=== PATIENT | female | born 1980 | race American Indian/Alaskan Native ===

== ENCOUNTER 2016-12-23 03:16 | Outpatient (CLI) | payer MEDICAID ==
[2016-12-23 03:36] VITALS: BP 120/56
--- NOTE | 2016-12-23 08:18 | Ultrasound Report ---
BIOPHYSICAL PROFILE: 2 - breathing movements 2 - movements 2 - posture and tone 2 - Qualitative amniotic fluid volume 8 - TOTAL SCORE OF POSSIBLE 8 Heart Rate (bpm) 139 History: SROM,, well being Gestation: Single Amniotic Fluid: ELISE = 12.2 cm Heart Rate: 146 BPM
== END 2016-12-23 05:32 | disposition home or self-care (01) ==
LOC: TRG 03:16
PROVIDERS: ATTEND Obstetrics & Gynecology
DX: O47.1 False labor at or after 37 completed weeks of gestation (principal); Z3A.38 38 weeks gestation of pregnancy
CPT/HCPCS: 59025; 76815; 76819

== ENCOUNTER 2016-12-28 11:25 | Inpatient (IN) | payer MEDICAID ==
[2016-12-28] MEDS ORDERED: LACTATED RINGERS 1,000 ML ONE (12:25)
[2016-12-28] MEDS ORDERED: POLYCILLIN/NS 2 GM/100 ML 2 GM/100 ML BAG IV ONE ×2 (12:25→17:14)
[2016-12-28] MEDS ORDERED: BRETHINE IVP PRN (12:32)
[2016-12-28] MEDS ORDERED: BRETHINE SUB-Q PRN (12:32)
[2016-12-28] MEDS ORDERED: ePHEDrine SULFATE IV PRN ×2 (12:32→15:54)
[2016-12-28] MEDS ORDERED: SUBLIMAZE IV PRN (12:32)
[2016-12-28] MEDS ORDERED: MINERAL OIL PO PRN (12:32)
[2016-12-28] MEDS ORDERED: STADOL IV PRN (12:32)
[2016-12-28] MEDS ORDERED: PITOCin/NS 20 UNIT/1000ML DRIP 20 UNITS/1,000 ML BAG IV SCH (13:00)
[2016-12-28 13:10] LABS: Hematocrit 26.2 % (30.3-42.9); Hemoglobin 7.8 gm/dl (10.1-14.3); Mean Corpuscular HGB Conc 30 % (30-34); Red Blood Count 4.05 M/mm3 (3.65-5.03); White Blood Count 8.6 K/mm3 (4.5-11.0)
[2016-12-28 13:14] LABS: Mean Corpuscular Hemoglobin 19 pg (28-32); Mean Corpuscular Volume 65 fl (79-97); Red Cell Distribution Width 20.7 % (13.2-15.2)
[2016-12-28] MEDS: LACTATED RINGERS 1,000 ML IV SCH ×2 (13:24→14:38)
[2016-12-28] MEDS: PITOCin/NS 30 UNIT/500ML 30 UNITS/500 ML BAG IV SCH ×4 (14:01→17:03)
[2016-12-28 14:11] LABS: Platelet Count 114 K/mm3 (140-440)
--- NOTE | 2016-12-28 14:28 | History and Physical Report ---
History of Present Illness Date of examination: 12/28/16 Date of admission: 12/28/16 12:15 Chief complaint: Labor Pains History of present illness: Late entry to care at 27 2/7 Weeks, GDM A1, non-compliant with APA consult, never went. 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 History: abnormal PAP smear (HPV), herpes Family/Genetic History: none Social history: no significant social history - Obstetrical History Expected Date of Delivery: 01/03/17 Actual Gestation: 39 Week(s) 1 Day(s) : 3 Para: 2 Hx # Term Pregnancies: 2 Number of Living Children: 2 #1 Infant Gender: Female year: 2,009 Birthweight: 3.544 kg Method of Delivery: Vaginal #2 Infant Gender: Female year: 2,[birth year] Birthweight: 3.203 kg Method of Delivery: Vaginal Medications and Allergies Allergies Allergy/AdvReac Type Severity Reaction Status Date / Time No Known Allergies Allergy Verified 08/26/13 08:48 Home Medications Medication Instructions Recorded Confirmed Last Taken Type Pnv95/Ferrous Fumarate/FA 1 tab PO DAILY 08/29/13 04/09/14 08/28/13 History [ Multivitamins Tablet] Active Meds: Active Medications Butorphanol Tartrate (Stadol) 2 mg IV Q2H PRN PRN Reason: Pain , Severe (7-10) Fentanyl (Sublimaze) 100 mcg IV Q2H PRN PRN Reason: Labor Pain Lactated Ringer's (Lactated Ringers) 1,000 mls @ 125 mls/hr IV DIRECT JUNITO Last Admin: 12/28/16 13:24 Dose: 125 mls/hr Oxytocin/Sodium Chloride (Pitocin/Ns 20 Unit/1000ml Drip) 20 units in 1,000 mls @ 125 mls/hr IV DIRECT JUNITO Oxytocin/Sodium Chloride (Pitocin/Ns 30 Unit/500ml) 30 units in 500 mls @ 2 mls /hr IV TITR JUNITO PRN Reason: Protocol Last Admin: 12/28/16 14:01 Dose: 4 ml/hr, 4 mls/hr Mineral Oil (Mineral Oil) 30 ml PO QHS PRN PRN Reason: Constipation Review of Systems All systems: negative - Vital Signs Vital signs: Vital Signs Temp Pulse Resp BP Pulse Ox 98.1 F 107 H 18 122/69 99 12/28/16 11:44 12/28/16 11:44 12/28/16 11:44 12/28/16 11:44 12/28/16 11:44 Temp Pulse Resp BP Pulse Ox 98.0 F 101 H 16 123/63 95 12/28/16 13:21 12/28/16 14:26 12/28/16 13:21 12/28/16 13:25 12/28/16 14:26 - Physical Exam Breasts: Positive: normal Cardiovascular: Regular rate Lungs: Positive: Clear to auscultation Abdomen: Positive: normal appearance, soft, normal bowel sounds Genitourinary (Female): Positive: normal external genitalia, normal perenium Vagina: Positive: normal moisture Uterus: Positive: enlarged Anus/Rectum: Positive: normal perianal skin Extremities: Positive: normal - Obstetrical FHR: category 1 Uterine Contraction Monitor Mode: External Cervical Dilatation: 5 (Large amount of clear fluid upon AROM at 1416) Cervical Effacement Percentage: 70 station: -2 Uterine Contraction Pattern: Irregular Uterine Tone Measurement Phase: Resting Uterine Contraction Intensity: Moderate Results Result Diagrams: 12/28/16 12:40 Abnormal lab results 12/28/16 Range/Units 12:40 Hgb 7.8 L (10.1-14.3) gm/dl Hct 26.2 L (30.3-42.9) % MCV 65 L (79-97) fl MCH 19 L (28-32) pg RDW 20.7 H (13.2-15.2) % Plt Count 114 L (140-440) K/mm3 All other labs normal. Assessment and Plan A: IUP @ 39 1/7 Week Category I Tracing Active Labor GDM A1 GBS Positive Severe Anemia Non-Compliant with Care P: Admit to L&D per Routine Orders GBS prophylaxis Pitocin Augmentation AROM Accuchecks as ordered
[2016-12-28] MEDS ORDERED: fentaNYL-BUPIV 2 MCG/ML-0.125% 200 MCG/100 ML BAG EPIDURAL ONE (14:49)
[2016-12-28] MEDS ORDERED: CYTOTEC ONE (15:12)
[2016-12-28] MEDS ORDERED: XYLOCAINE 2% INFILTRATI ONE (15:28)
[2016-12-28] MEDS ORDERED: XYLOCAINE MPF 2% ONE ×2 (15:29→16:12)
--- NOTE | 2016-12-28 15:52 | Anesthesia Consultation ---
Anesthesia Consult and Med Hx Date of service: 12/28/16 - Airway Anesthetic Teeth Evaluation: Good ROM Head & Neck: Adequate Mental/Hyoid Distance: Adequate Mallampati Class: Class II Intubation Access Assessment: Probably Good - Pulmonary Exam CTA: Yes - Cardiac Exam Cardiac Exam: RRR - Pre-Operative Health Status ASA Pre-Surgery Classification: ASA2 Proposed Anesthetic Plan: Epidural (CSE for labor), Spinal - Pulmonary Hx Asthma: No COPD: No Hx Pneumonia: No - Cardiovascular System Hx Hypertension: No - Central Nervous System Hx Seizures: No Hx Psychiatric Problems: No - Endocrine Hx Renal Disease: No Hx End Stage Renal Disease: No Hx Hypothyroidism: No Hx Hyperthyroidism: No - Hematic Hx Anemia: No Hx Sickle Cell Disease: No - Other Systems Hx Alcohol Use: No
[2016-12-28] MEDS ORDERED: NARCAN 2 MG/2 ML IV PRN (15:54)
[2016-12-28] MEDS ORDERED: fentaNYL-BUPIV 2 MCG/ML-0.125% 200 MCG/100 ML BAG EPIDURAL SCH (16:00)
[2016-12-28] MEDS ORDERED: POLYCILLIN/NS 1 GM/50 ML 1 GM/50 ML BAG IV ONE (17:11)
[2016-12-28] MEDS ORDERED: TUCKS PAD TP PRN (18:06)
[2016-12-28] MEDS ORDERED: PHENERGAN PO PRN (18:06)
[2016-12-28] MEDS ORDERED: DULCOLAX PR PRN (18:06)
[2016-12-28] MEDS ORDERED: MILK OF MAGNESIA PO PRN (18:06)
[2016-12-28] MEDS ORDERED: BENADRYL PO PRN (18:06)
[2016-12-28] MEDS ORDERED: PHENERGAN PR PRN (18:06)
[2016-12-28] MEDS ORDERED: LANSINOH TP PRN (18:06)
--- NOTE | 2016-12-28 18:14 | Procedure Note ---
OB Delivery Note - Delivery Date of Delivery: 12/28/16 (1752) Surgeon: NIALL SWANN Estimated blood loss: 200cc - Vaginal Delivery presentation: vertex Delivery position: OA Intrapartum events: none Delivery induction: none Delivery augmentation: rupture of membranes, pitocin Delivery monitor: external FHT, external uterine Route of delivery: Delivery placenta: spontaneous Delivery cord: 3 umbilical vessels Episiotomy: none Delivery laceration: none Anesthesia: epidural Delivery comments: of a live 8'3 male infant over a intact perineum under epidural anesthesia with Apgars of 8 and 9 at 1752 on 12/29/2016. directly to maternal abd/ chest, skin to skin contact. Spontaneous delivery of placenta complete and intact with [place] side presenting at 1756. Fundus is firm and midline located 4 below the U. Lochia is scant. 1000mcg of Cytotec placed rectally due to severe anemia. Delayed cord clamping and cutting; Cord cut by Father of the Baby. Cord blood collected; Placenta discarded. GBS prophylaxis X2. - Infant A at 1 minute: 8 at 5 minutes: 9 Infant Gender: Male (8'3)
[2016-12-28] MEDS ORDERED: INFED IM ONE (18:18)
[2016-12-28] MEDS ORDERED: SODIUM CHLORIDE FLUSH SYRINGE 10 ML IV NR (19:00)
[2016-12-28] MEDS: FEOSOL PO SCH (20:30)
[2016-12-28] MEDS: MOTRIN PO SCH (22:13)
[2016-12-28] MEDS: NORCO 5/325 PO PRN (22:17)
[2016-12-29] MEDS ORDERED: PITOCin/NS 20 UNIT/1000ML DRIP 20,000 MILLIUNITS/1,000 ML BAG IV ONE (01:35)
[2016-12-29] MEDS: NORCO 5/325 PO PRN (04:16)
[2016-12-29] MEDS: MOTRIN PO SCH ×4 (04:16→18:20)
[2016-12-29 06:26] LABS: Hematocrit 24.7 % (30.3-42.9); Hemoglobin 7.5 gm/dl (10.1-14.3)
[2016-12-29] MEDS: FEOSOL PO SCH ×3 (08:27→20:21)
[2016-12-29] MEDS: PRENATAL VITAMIN PO SCH (09:50)
--- NOTE | 2016-12-29 10:19 | Progress Note ---
Assessment and Plan A: PP Day#1 Severe Anemia P: Follow Routine Orders Consult Dr. Pacheco RE: Symptomatic Anemia; Blood Transfusion Subjective - Subjective Date of service: 12/29/16 Interval history: Late entry to care at 27 2/7 Weeks, GDM A1, non-compliant with APA consult, never went. Also non-compliant with appointments Patient reports: appetite normal, voiding normally, pain well controlled, flatus , ambulating normally, other (States she feels tired) [place]: in NICU Objective - Vital Signs Latest vital signs: Vital Signs Temp Pulse Resp BP BP Pulse Ox 12/29/16 04:25 98.6 F 61 20 135/56 98 12/29/16 00:56 99.6 F 143/55 12/29/16 00:54 99.6 F 62 20 99/56 99 12/28/16 19:50 67 98 12/28/16 19:45 71 99 12/28/16 19:43 61 146/70 12/28/16 19:40 60 98 12/28/16 19:35 64 99 12/28/16 19:30 66 99 12/28/16 19:28 64 151/70 12/28/16 19:25 67 99 12/28/16 19:23 98.0 F 70 18 151/70 100 12/28/16 19:13 68 138/53 12/28/16 18:59 66 149/67 12/28/16 18:44 75 119/55 12/28/16 17:47 87 100 12/28/16 17:42 100 H 100 12/28/16 17:37 87 100 12/28/16 17:32 61 87 12/28/16 17:27 87 100 12/28/16 17:22 72 100 12/28/16 17:17 81 100 12/28/16 17:12 72 100 12/28/16 17:07 69 100 12/28/16 17:02 68 100 12/28/16 16:57 76 100 12/28/16 16:52 69 100 12/28/16 16:47 72 100 12/28/16 16:42 71 100 12/28/16 16:37 74 100 12/28/16 16:32 67 98 12/28/16 16:27 79 98 12/28/16 16:22 67 99 12/28/16 16:17 70 99 12/28/16 16:12 77 100 12/28/16 16:07 75 100 12/28/16 16:02 78 100 12/28/16 15:57 75 100 12/28/16 15:52 78 99 12/28/16 15:51 74 127/64 12/28/16 15:47 78 99 12/28/16 15:42 74 100 12/28/16 15:36 86 117/57 100 12/28/16 15:26 80 100 12/28/16 15:21 86 100 12/28/16 15:11 78 100 12/28/16 15:06 75 100 12/28/16 15:01 75 100 12/28/16 14:56 77 100 12/28/16 14:51 82 99 12/28/16 14:46 72 100 12/28/16 14:41 73 99 12/28/16 14:36 75 100 12/28/16 14:31 73 99 12/28/16 14:26 101 H 95 12/28/16 14:25 60 50 L 12/28/16 14:21 96 H 100 12/28/16 14:16 79 100 12/28/16 14:11 76 100 12/28/16 14:06 82 100 12/28/16 14:05 87 93 12/28/16 13:30 94 H 100 12/28/16 13:28 101 H 82 L 12/28/16 13:25 80 123/63 98 12/28/16 13:21 98.0 F 85 16 123/63 98 12/28/16 13:20 81 98 12/28/16 13:15 90 98 12/28/16 13:10 94 H 98 12/28/16 13:05 94 H 91 12/28/16 12:53 89 99 12/28/16 12:48 101 H 100 12/28/16 12:17 93 H 99 12/28/16 12:12 97 H 97 12/28/16 12:06 93 H 98 12/28/16 12:01 102 H 93 12/28/16 12:00 112 H 82 L 12/28/16 11:56 123 H 82 L 12/28/16 11:55 89 82 L 12/28/16 11:49 91 H 122/69 96 12/28/16 11:44 98.1 F 94 H 18 122/69 97 Intake and Output 12/28/16 12/29/16 12/29/16 22:59 06:59 14:59 Intake Total 24.2 240 Output Total 550 225 Balance 24.2 -310 -225 Intake: IV 24.2 PITOCin/NS 30 UNIT/500ML 24.2 30 units In 500 ml @ 2 mls/hr IV TITR JUNITO Rx#: [id number] Oral 240 Output: Urine 550 225 Void 550 225 Other: Total, Intake Amount 240 Total, Output Amount 150 225 Estimated Blood Loss 200 - Exam Breasts: Present: normal Cardiovascular: Present: Regular rate Lungs: Present: Clear to auscultation, Normal air movement Abdomen: Present: normal appearance, soft, normal bowel sounds Uterus: Present: normal, firm, fundal height below umbilicus - Labs Labs: Abnormal lab results 12/28/16 12/28/16 12/29/16 Range/Units 12:40 21:42 05:49 Hgb 7.8 L 7.5 L (10.1-14.3) gm/dl Hct 26.2 L 24.7 L (30.3-42.9) % MCV 65 L (79-97) fl MCH 19 L (28-32) pg RDW 20.7 H (13.2-15.2) % Plt Count 114 L (140-440) K/mm3 POC Glucose 133 H (70-105)
--- NOTE | 2016-12-29 13:41 | Progress Note ---
Subjective Date of service: 12/29/16 Interval history: 1st day after normal vaginal delivery Patient is in the bed, comfortable. Pain is well control with pain meds. Ambulated well. No residual neurological deficit. No anesthesia complications Objective - Constitutional Vitals: Vital Signs - 12hr 12/29/16 12/29/16 04:25 08:43 Temperature 98.6 F 97.5 F L Pulse Rate 61 64 Respiratory 20 18 Rate Blood Pressure 135/56 123/70 [Left] O2 Sat by Pulse 98 97 Oximetry - Labs CBC & Chem 7: 12/29/16 05:49 Labs: Abnormal lab results 12/28/16 12/28/16 12/29/16 Range/Units 12:40 21:42 05:49 Hgb 7.5 L (10.1-14.3) gm/dl Hct 24.7 L (30.3-42.9) % Plt Count 114 L (140-440) K/mm3 POC Glucose 133 H (70-105)
[2016-12-30] MEDS: MOTRIN PO SCH ×3 (00:29→12:08)
--- NOTE | 2016-12-30 01:37 | Progress Note ---
Assessment and Plan A: PP Day#2 Asymptomatic Anemia GDM A1 P: Follow Routine Postpatum Orders Continue PO FeSO4 325mg TID Continue GDM Diet Desires Sterilization RTO in 2 Weeks Subjective - Subjective Date of service: 12/30/16 Interval history: Late entry to care at 27 2/7 Weeks, GDM A1, non-compliant with APA consult, never went. Also non-compliant with appointments Patient reports: appetite normal, voiding normally, pain well controlled, flatus , bowel movement, ambulating normally [place]: in NICU Objective - Vital Signs Latest vital signs: Vital Signs Temp Pulse Resp BP Pulse Ox 12/29/16 17:09 98.1 F 58 L 18 117/60 98 12/29/16 12:17 80 123/59 12/29/16 12:13 61 123/54 12/29/16 12:08 98.3 F 66 18 115/47 94 12/29/16 08:43 97.5 F L 64 18 123/70 97 12/29/16 04:25 98.6 F 61 20 135/56 98 Intake and Output 12/29/16 12/29/16 12/30/16 14:59 22:59 06:59 Intake Total 720 Output Total 225 Balance 495 Intake: Oral 720 Output: Urine 225 Void 225 Other: Total, Intake Amount 240 Total, Output Amount 225 # Voids Void 1 - Exam Breasts: Present: normal Cardiovascular: Present: Regular rate Lungs: Present: Clear to auscultation, Normal air movement Abdomen: Present: normal appearance, soft, normal bowel sounds Uterus: Present: normal, firm, fundal height below umbilicus Extremities: Present: normal - Labs Labs: Abnormal lab results 12/29/16 Range/Units 05:49 Hgb 7.5 L (10.1-14.3) gm/dl Hct 24.7 L (30.3-42.9) %
--- NOTE | 2016-12-30 01:39 | Discharge Summary ---
Providers - Providers Date of Admission: 12/28/16 12:15 Date of discharge: 12/30/16 Attending physician: ROLY SCHAEFFER MD Primary care physician: ROLY SCHAEFFER MD Hospitalization Reason for admission: active labor Delivery: Episiotomy: none Laceration: none Other procedures: none complications: none Discharge diagnosis: IUP at term delivered [place] baby: male Condition at discharge: Good Disposition: DC-01 TO HOME OR SELFCARE Plan - Provider Discharge Summary Activity: routine, no sex for 6 weeks, no heavy lifting 4 weeks, no strenuous exercise Diet: routine Instructions: routine Additional instructions: [] Smoking cessation referral if applicable(refer to patient education folder for contact #) [] Refer to [facility]'s [facility] Booklet Call your doctor immediately for: * Fever > 100.5 * Heavy vaginal bleeding ( >1 pad per hour) * Severe persistent headache * Shortness of breath * Reddened, hot, painful area to leg or breast * Drainage or odor from incision. * Keep incision clean and dry at all times and follow doctor's instructions regarding bathing/showering - Follow up plan Follow up: ROLY SCHAEFFER MD [Primary Care Provider] - 14 Days
[2016-12-30] MEDS: FEOSOL PO SCH (12:09)
[2016-12-30] MEDS: PRENATAL VITAMIN PO SCH (12:09)
[2016-12-30 17:34] VITALS: BP 151/53
== END 2016-12-30 18:20 | disposition home or self-care (01) | DRG 775 ==
LOC: TRG 11:25 → LD 12:15 → OB 20:15
PROVIDERS: ADMIT Obstetrics & Gynecology; ATTEND Obstetrics & Gynecology
PROC: 10E0XZZ Delivery of Products of Conception, External Approach (ICD-10-PCS; principal; 2016-12-28)
PROC: 3E0R3BZ Introduction of Anesthetic Agent into Spinal Canal, Percutaneous Approach (ICD-10-PCS; 2016-12-28)
PROC: 00HU33Z Insertion of Infusion Device into Spinal Canal, Percutaneous Approach (ICD-10-PCS; 2016-12-28)
PROC: 10907ZC Drainage of Amniotic Fluid, Therapeutic from Products of Conception, Via Natural or Artificial Opening (ICD-10-PCS; 2016-12-28)
DX: O24.420 Gestational diabetes mellitus in childbirth, diet controlled (principal); O99.824 Streptococcus B carrier state complicating childbirth; Z3A.39 39 weeks gestation of pregnancy; Z37.0 Single live birth; O99.03 Anemia complicating the puerperium; D64.9 Anemia, unspecified
CPT/HCPCS: 36415; 82962; 85014; 85018; 85027; 86850; 86900; 86901; 88307; J0290; J1750; J2590; J7120